=== PATIENT | female | born 1990 | race Caucasian/White ===

== ENCOUNTER 2019-09-17 23:01 | Day surgery (SDC) | payer OTHER ==
[2019-09-17 23:26] VITALS: BMI 29.2
[2019-09-17] MEDS ORDERED: hydrALAZINE 20 MG/ML VIAL SLOW IVP PRN (23:34)
--- NOTE | 2019-09-17 23:37 | PDOC.LDHP ---
Labor and Delivery H&P Chief complaint: other (s/p fall in shower at 2100 this pm. Patient of Rebecca LALA) HPI: 28 yo at 29 weeks 4 days with fall in shower to buttocks. No diect abdominal injury. NO VB, good FM. Sees an MD at [facility] Review of Systems: complete ROS performed and negative as per HPI Current gestational age (weeks): 29 (4 days) Due date: 11/29/19 Dating criteria: last menstrual period Grav: 2 Para: 1 OB History Details: x1 Current complications: none Abnormal US findings: No Current medications: pre-ruthy vitamins Previous surgical history: none Allergies/Adverse Reactions: Allergies Allergy/AdvReac Type Severity Reaction Status Date / Time No Known Allergies Allergy Verified 09/17/19 23:22 - Physical Exam Vital signs reviewed and normal: yes (123/73 105 98.5 18) General: NAD Heart: RRR Lungs: CTAB Abdomen: gravid FHT: category 1 (raective for EGA) [place] contractions every: mild irritability - Assessment s/p fall at 29 weeks, no direct abdominal injury. - Plan Plan: observation in L&D (Obs until 4 hrs from incident. Check RH type and give rohgam if negative. Currently very stable.)
== END 2019-09-18 01:01 | disposition home or self-care (01) ==
LOC: L&D/OP 23:01
PROVIDERS: ATTEND Obstetrics & Gynecology
DX: Z03.89 Encounter for observation for other suspected diseases and conditions ruled out (principal); Z3A.29 29 weeks gestation of pregnancy; Z91.81 History of falling
CPT/HCPCS: 36415; 59025; 86900; 86901; 99282